=== PATIENT | male | born 1990 | race Caucasian/White ===

== ENCOUNTER 2020-05-23 08:14 | Emergency (ER) | payer SELFPAY ==
[~2020-05-23] VITALS: Ht 167.6 cm; Wt 70.5 kg
[2020-05-23 08:24] VITALS: BP 139/82; Ht 167.6 cm; Wt 70.5 kg
== END 2020-05-23 08:54 | disposition home or self-care (01) ==
LOC: D.ER 08:14
DX: R50.9 Fever, unspecified (principal)